=== PATIENT | female | born 1970 | race Two or more races ===

== ENCOUNTER → 2017-03-08 | Outpatient (CLI) | payer OTHER ==
[2012-03-21 22:25] VITALS: BP 141/72
--- NOTE | 2017-03-14 08:32 | MG ---
HISTORY: Right breast carcinoma Bilateral digital diagnostic mammography with CAD. Comparison: December 17, 2013 and November 08, 2014 FINDINGS: Bilateral CC and MLO projections of the right and left breast were obtained. And mL view of the right breast was also obtained. Scattered fibroglandular tissue is seen to be present without significant interval change. No new or developing suspicious architectural distortion, mass or clustered microca lcifications can be observed to suggest malignancy. There are stable postsurgical changes on the rig ht. No pathological lymphadenopathy can be identified. Benign-appearing calcifications are noted with in the right and left breast. IMPRESSION: NO RADIOGRAPHIC EVIDENCE OF MALIGNANCY. ACR CATEGORY 2 - benign findings. FOLLOW-UP EXAM 1 YEAR. Diagnostic CAD was utilized and reviewed. * 0 (ZERO) - ASSESSMENT INCOMPLETE; ADDITIONAL IMAGING IS NEEDED. * 1/1 (ONE) - NEGATIVE. * 2/II (TWO) - BENIGN FINDINGS. * 3/III (THREE) - PROBABLY BENIGN FINDING; SHORT INTERVAL FOLLOW-UP SUGGESTED. * 4/IV (FOUR) - SUSPICIOUS ABNORMALITY; BIOPSY SHOULD BE CONSIDERED. * 5/V - HIGHLY SUSPICIOUS OF MALIGNANCY; BIOPSY SHOULD BE PERFORMED. A NEGATIVE X-RAY REPORT SHOULD NOT DELAY BIOPSY IF A DOMINANT OR CLINICALLY SUSPICIOUS MASS IS PRESENT; 4 TO 8 PERCENT OF CANCERS ARE NOT IDENTIFIED BY X-RAY. A NEGA TIVE REPORT MAY REINFORCE THE CLINICAL IMPRESSION. ADENOSIS AND DENSE BREASTS MAY OBSCURE AN UNDERLY ING NEOPLASM. Reported By:
== END ==
LOC: RAD 13:03
PROVIDERS: ATTEND Internal Medicine
DX: Z12.31 Encounter for screening mammogram for malignant neoplasm of breast (principal)
CPT/HCPCS: 77066

== ENCOUNTER → 2017-05-03 | Outpatient (CLI) | payer BC ==
[2012-03-21 22:25] VITALS: BP 141/72
--- NOTE | 2017-05-03 12:33 | MRI ---
MRI OF THE LUMBAR SPINE WITHOUT IV CONTRAST CLINICAL INDICATION: Intervertebral disc disease. Low back pain. TECHNIQUE: Pre-contrast sagittal T1-, T2-, and T2-w fat-saturated images, and axial T1- and T2-w imag es of the lumbar spine. COMPARISON: None. FINDINGS: For purposes of this dictation, it is assumed that there are 5 [id number], lumbar-type vertebrae , and the most caudal fully segmented lumbar vertebra is labeled L5. The lumbar spine demonstrates normal alignment. Vertebral bodies are normal in height. There is a nor mal marrow signal pattern. Multilevel degenerative disc disease worst at L4-5 and L5-S1 with disc hei ght loss and desiccation. The conus medullaris terminates at a normal level and the nerve roots of th e cauda equina appear normal. The included paraspinal soft tissues and retroperitoneal structures are grossly normal. Findings suspicious for bilateral L5 pars defects. Small bilateral L4-5 synovial cys ts. Evaluation of the individual levels demonstrates: L1-2: Normal L2-3: Normal L3-4: Normal L4-5: Circumferential disc bulge with ligamentum flavum redundancy and high facet signal. There is a moderate central stenosis and moderate bilateral neural foraminal stenosis at this level L5-S1: Normal IMPRESSION: 1. Disc bulge and facet arthritis at L4-5 resulting in moderate bilateral neural foraminal stenosis. 2. Probable bilateral L5 pars defects as well as small synovial cyst associated with the bilateral L4 -5 facets. Reported By:
== END | disposition home or self-care (01) | DRG 552 ==
LOC: RAD 10:52
PROVIDERS: ATTEND Internal Medicine
DX: M51.16 Intervertebral disc disorders with radiculopathy, lumbar region (principal); M51.36 Other intervertebral disc degeneration, lumbar region
CPT/HCPCS: 72148

== ENCOUNTER → 2017-07-12 | Outpatient (CLI) | payer BC ==
[2012-03-21 22:25] VITALS: BP 141/72
== END ==
LOC: RAD 16:27
PROVIDERS: ATTEND Neurological Surgery
DX: M54.16 Radiculopathy, lumbar region (principal)
CPT/HCPCS: 72110